=== PATIENT | male | born 1975 | race Native Hawaiian/Other Pacific Islander ===

== ENCOUNTER 2025-02-06 11:09 | Outpatient (AMB) | payer OTHER, SELFPAY ==
--- NOTE | 2025-02-06 11:17 | A.OFFVIS_ITS ---
Vital Signs 02/06/25 11:18 Height 5 ft 11 in Weight 278 lb BMI 38.8 Intake Visit Reasons: Pain in RT ankle and joints of Rt foot Intake Note: Noe is a 49 year old male who presents today as a new patient for an evaluation of his right ankle and foot pain. Patient states the pain has been going on for about 2 months and he has tried OTC pain medication and found no re lief. Pt was seen at urgent care about 1.5 months ago where he was provided with a post op shoe. Allergies barium iodide (BARIUM IODIDE) Allergy (Unknown, Verified 02/06/25 11:24) HIVES barium sulfate Allergy (Unknown, Verified 02/06/25 11:24) Hives HPI HPI Pain in RT ankle and joints of Rt foot: Details: The patient is a 49-year-old male with past medical history of diabetes mellitus type 2, tobacco use, presents for right foot pain and swelling. The foot pain b noni a couple of months ago after a foot sprain/injury. He then had a new foot injury 3 weeks ago and has had worsening pain and swelling since then. He is ambulating in a post-op shoe. The patient has a history of Diabetes Mellitus, with a recent HbA1c of 6.5%, down from 12.1%. Complains of burning/tingling to his feet bilaterally, worse when his sugar is higher. He also has been working on quitting smoking, currently smoking half a pack of cigarettes. He also complains of a vein problem to his right ankle, and painful toe nails and lesion to his right big toe. Medical History: - Diabetes Mellitus Social History: - Smoking: Patient smokes, advised to reduce smoking to improve healing. Review of Systems Const All systems reviewed & are unremarkable except as noted in HPI and below Physical Exam Vital Signs: BMI result Body Mass Index 38.8 Extrem Other: *Bilateral Lower Extremity Focused Diabetic Foot Exam Vascular: DP/PT 2/4, CFT<3s to digits, TG warm to cool, moderate right dorsal foot edema, pedal hair absent Derm: Skin: hyperkeratotic lesion right medial hallux, plantar sub-met-1 bilaterally Interdigital spaces: Clear, no maceration or fungal infection. Nails: Elongated, dystrophic, thickened, discolored toe-nails x10 Neuro: Protective sensation grossly intact to bilateral lower extremities. Msk: moderate tenderness on palpation of dorsal 2nd-5th tarsal-metatarsals right foot, (+) stress abduction test, negative piano oates test right foot metatarsals 2-5. Deformities: Moderate-high cavus foot deformity bilaterally, semi-rigid. Gait: Normal, no antalgic or steppage gait observed. Footwear Assessment: Shoes inspected; appropriate fit, no excessive wear, or foreign objects noted. Office Procedures AMB Debridement /Avulsion Details: Procedure: Callus debridement Location: Right hallux Anesthesia: N/A Description: The affected area was cleansed with an antiseptic solution. Using a sterile #15 blade, the hyperkeratotic tissue was radially debrided from the foot. All callused tissue was removed down to normal skin without causing bleeding or discomfort. The area was inspected for underlying ulceration or infection. Patient tolerated the procedure well. No complications noted. Tolerance: Patient tolerated procedure well, no immediate complications. [id number] of Callus (1) Procedure code (CPT) selection complete Assessment & Plan Assessment & Plan (1) Lisfranc's sprain: Code(s): S93.629A - Sprain of tarsometatarsal ligament of unspecified foot, initial encounter Category: Medical Qualifiers: Encounter type: initial encounter Laterality: right Qualified Code(s): S93.621A - Sprain of tarsometatarsal ligament of right foot, initial encounter Plan: * Differential diagnosis: lisfranc sprain, lisfranc fracture, charcot neuroarthropathy * Referred for right foot/ankle x-rays. * Dispensed CAM boot, to be worn when weight-bearing at all times. * Follow up in 2 weeks. (2) Right ankle sprain: Code(s): S93.401A - Sprain of unspecified ligament of right ankle, initial encounter Category: Medical Qualifiers: Encounter type: initial encounter Involved ligament of ankle: anterior talofibular ligament Qualified Code(s): S93.491A - Sprain of other ligament of right ankle, initial encounter Plan: * continue PWB in CAM boot (3) Callus of foot: Code(s): L84 - Corns and callosities Category: Medical Plan: * debrided right foot lesion with a #15 blade (4) Diabetes mellitus: Code(s): E11.9 - Type 2 diabetes mellitus without complications Category: Medical Qualifiers: Diabetes mellitus type: type 2 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: with local intermodal truck driver use Diabetes mellitus complication status: with neurologic complications Diabetes mellitus complication detail: with polyneuropathy Qualified Code(s): E11.42 - Type 2 diabetes mellitus with diabetic polyneuropathy; 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 Orders: Orders XR foot RT min 3V Today S93.401A - Sprain of unspecified ligament of right ankle, initial encounter, S93.629A - Sprain of tarsometatarsal ligament of unspecified foot, initial encounter XR ankle RT min 3V Today S93.401A - Sprain of unspecified ligament of right ankle, initial encounter, S93.629A - Sprain of tarsometatarsal ligament of unspecified foot, initial encounter Coding Level of Care Code New Pt Level 4 (22538) Diagnoses Sprain of ligament of tarsometatarsal joint of right foot, initial encounter S93.621A Encounter type: initial encounter Laterality: right Sprain of anterior talofibular ligament of right ankle, initial encounter S93.491A Encounter type: initial encounter Involved ligament of ankle: anterior talofibular ligament Callus of foot L84 Type 2 diabetes mellitus with diabetic polyneuropathy, with long-term current use of insulin E11.42; Z79.4 Diabetes mellitus type: type 2 Diabetes mellitus fpc insulin use: with fpc use Diabetes mellitus complication status: with neurologic complications Diabetes mellitus complication detail: with polyneuropathy Smokes < 1 pack of cigarettes per day F17.210 Time Spent (min) 35
[2025-02-06 11:18] VITALS: BMI 38.8
--- OUTSIDE RECORDS SUMMARY | 2025-02-06 13:31 | XMS_ITS | Clinical Summary ---
Author Organization [facility] Address [address] [place] [address] Phone Care Team Providers Care Gutter Mouth Cutter Name Role Phone Cris Solis MD Primary Care Provider Allergies Active Allergy Reactions Criticality Noted Date Comments Barium Iodide Anaphylaxis High 05/21/2024 Medications gabapentin (NEURONTIN) 300 mg capsule Take 1 capsule (300 mg total) by mouth 3 (three) times a day for 10 days. 30 each 05/22/2024 Active levoFLOXacin (LEVAQUIN) 500 mg tablet Take 1 tablet (500 mg total) by mouth 1 (one) time each day for 14 days. 14 each 01/13/2025 01/28/20 25 Active Problems No known active problems Encounters Date Type Department Care Team Description 01/16/2025 6:23 AM EDT - 01/16/2025 7:43 AM EDT Emergency [facility] [address] [place] [phone] Chest pain, unspecified type (Primary Dx) Discharge Disposition: Home or Self Care 01/13/2025 3:24 AM EDT - 01/13/2025 8:29 AM EDT Emergency [facility] [address] [place] [address] Preston Nagy MD Muhoozi, Bannet, MD Groin swelling (Primary Dx); Orchitis Discharge Disposition: Home or Self Care 12/14/2024 12:57 PM EDT - 12/14/2024 1:56 PM EDT Emergency [facility] [address] [place] [address] Sprain of right foot, initial encounter (Primary Dx) Discharge Disposition: Home or Self Care from Last 3 Months Medical History Medical History Date Comments Diabetes (CMS/HCC V24, CMS/HCC V28) High cholesterol Social History Tobacco Use Types Packs/Day Years Used Date Smoking Tobacco: Every Day Cigarettes Smokeless Tobacco: Never Tobacco Cessation:Ready to Q uit: No; Counseling Given: Not Answered Alcohol Use Standard Drinks/Week Comments Never 0 (1 standard drink = 0.6 oz pur e alcohol) Sex and Gender Information Value Date Recorded Sex Assigned at Male 12/14/2024 2:05 PM EDT Legal Sex Male 3:16 AM EST Gender Identity Male 12/14/2024 2:05 PM EDT Sexual Orientation Straight 12/14/2024 2: 05 PM EDT Obstetrics History Last Filed Vital Signs Vital Sign Reading Time Taken Comments Blood Pressure 145/64 01/16/2025 6:17 AM EDT Pulse 87 01/16/2025 6:17 AM EDT Temperature 36.9 C (98.5 F) 01/13/2025 8:29 AM EDT Respiratory Rate 18 01/16/2025 6:17 AM EDT Oxygen Saturation 99% 01/16/2025 6:17 AM EDT Inhaled Oxygen Concentration - - Weight 136 kg (300 lb) 01/16/2025 6:17 AM EDT Height 177.8 cm (5' 10 ) 01/16/2025 6:17 AM EDT Body Mass Index 43.05 01/16/2025 6:17 AM EDT Plan of Treatment Health Maintenance Due Date Last Done Comments Diabetes: Annual Foot Exam 1984 Diabetes: Annual Retina Eye Exam 1984 Hepatitis A Vaccines (1 of 2 - Risk 2-dose series) 1993 Hepatitis B Vaccines (1 of 3 - 19+ 3-dose series) 1993 Cholesterol Screening (Lipid Panel) 03/19/2022 HIV Screening 03/19/2022 Hepatitis C Screening 03/19/2022 Social Influencers of Health Screening 03/19/2022 Depression Screening 04/16/2024 Diabetes: Annual Urine Albumin-Creatinine Ratio (uACR) 05/22/2024 Diabetes: Blood Sugar Contro l Test (HGBA1C) 05/22/2024 RSV Immunization Adult Patients (1 - Risk 50-74 years 1-dose series) 2024 Zoster Vaccines (1 of 2) 2024 COVID-19 Vaccine (2 - 2024-2 6 season) 2024 05/27/2022 Influenza Vaccine (#1) 2024 Diabetes: Annual GFR (Glomerular Filtration Rate) 05/22/2025 05/22/2024 Colorectal Cancer Screening: FIT-DNA (Cologuard) 12/10/2027 12/09/2024, 12/09/2024 DTaP,Tdap,and Td Vaccines (2 - Td or Tdap) 12/02/2034 12/02/2024 Pneumococcal Vaccine: 50+ Years Completed 12/02/2024 HIB Vaccines Aged Out No longer eligi ble based on patient's age to complete this topic HPV Vaccines Aged Out No longer eligi ble based on patient's age to complete this topic IPV Vaccines Aged Out No longer eligi ble based on patient's age to complete this topic MMR Vaccines Aged Out No longer eligi ble based on patient's age to complete this topic Meningococcal ACWY Vaccine Aged Out N o longer eligible based on patient's age to complete this topic Meningococcal B Vaccine Aged Out No l onger eligible based on patient's age to complete this topic RSV Immunization Patients Under 20 months Aged Out No longer eligible b ased on patient's age to complete this topic Varicella Vaccines Aged Out No longer eligible based on patient's age to complete this topic Procedures Procedure Name Priority Date/Time Associated Diagnosis Comments ECG ANNOTATED 01/17/2025 ECG 12-LEAD Routine 01/16/2025 6:16 AM EDT TAYLOR URINE CULTURE TUBE STAT 01/13/2025 6:13 AM EDT URINALYSIS WITH REFLEX MICROSCOPIC AND CULTURE STAT 01/13/2025 6:13 AM EDT URINALYSIS WITH REFLEX MICROSCOPIC AND CULTURE STAT 01/13/2025 6:13 AM EDT CULTURE URINE STAT 01/13/2025 6:13 AM EDT CHLAMYDIA TRACHOMATIS AND NEISSERIA GONORRHOEAE PCR STAT 01/13/2025 6:13 AM EDT US SCROTUM AND CONTENTS STAT 01/13/2025 4:38 AM EDT POCT GLUCOSE BLOOD Routine 12/14/2024 1: 25 PM EDT Sprain of right foot, initial encounter XR FOOT 3+ VIEWS RIGHT STAT 12:33 PM EDT Sprain of right foot, initial encounter COMPREHENSIVE METABOLIC PANEL STAT 05/22/2024 3:44 AM EST from Last 3 Months or Most Recently Relevant to Health Maintenance Results * ECG-Annotated (01/17/2025) Provider Onbase MD ECG ORDERABLES Final Result * ECG 12 lead (01/16/2025 6:16 AM EDT) Ventricular Rate ECG 95 BPM GEMUSE Atrial Rate 95 BPM GEMUSE P-R Interval 176 ms GEMUSE QRS Duration 136 ms GEMUSE Q-T Interval 418 ms GEMUSE QTc 525 ms GEMUSE P Wave Blakeslee 46 degrees GEMUSE R Blakeslee -10 degrees GEMUSE T Blakeslee 20 degrees GEMUSE ECG Interpretation Normal sinus rhythm Right bundle branch block Abnormal ECG When compared with ECG of 03-MAR-2021 13:07, Right bundle branch block is now Present Confirmed by TL CARBAJAL ([id number]) on 01/17/2025 10:59:19 AM GEMUSE 01/16/2025 6:16 AM EDT 01/17/2025 10:59 AM EDT Ned HOLLEY ECG ORDERABLES Final Resul t GEMUSE * (ABNORMAL) Urinalysis with reflex microscopic and culture (01/13/2025 6:13 AM ED) Specific [place] Urine 1.027 1.003 - 1.030 LAB URINALYSIS - AUTOMATED METHOD 01/13/2025 7:13 AM [facility] pH, Urine 6.0 5.0 - 8.0 pH LAB URINALYSIS - AUTOMATED METHOD 01/13/2025 7:13 AM [facility] Leukocytes, Urine Small(A) Negative LAB URINALYSIS - AUTOMATED METHOD 01/13/2025 7:13 AM [facility] Nitrite, Urine Negative Negative LAB URINALYSIS - AUTOMATED METHOD 01/13/2025 7:13 AM [facility] Protein, Urine 30(A) <=Trace mg/dL LAB URINALYSIS - AUTOMATED METHOD 01/13/2025 7:13 AM [facility] Glucose, Urine Negative Negative mg/dL LAB URINALYSIS - AUTOMATED METHOD 01/13/2025 7:13 AM [facility] Ketones, Urine Trace(A) Negative mg/dL LAB URINALYSIS - AUTOMATED METHOD 01/13/2025 7:13 AM [facility] Urobilinogen, Urine 1.0 0.2 - 1.0 mg/dL LAB URINALYSIS - AUTOMATED METHOD 01/13/2025 7:13 AM [facility] Bilirubin, Urine Negative Negative LAB URINALYSIS - AUTOMATED METHOD 01/13/2025 7:13 AM [facility] Blood, Urine Negative Negative LAB URINALYSIS - AUTOMATED METHOD 01/13/2025 7:13 AM [facility] RBC, Urine 0.2 0 - 4 /HPF LAB URINALYSIS - AUTOMATED METHOD 01/13/2025 7:13 AM [facility] WBC, Urine 4.1(H) 0 - 4 /HPF LAB URINALYSIS - AUTOMATED METHOD 01/13/2025 7:13 AM EDT [facility] Squamous Epithelial, Urine 71(H) 0 - 60 /LPF LAB URINALYSIS - AUTOMATED METHOD 01/13/2025 7:13 AM EDT [facility] Bacteria, Urine Few(A) Negative /HPF LAB URINALYSIS - AUTOMATED METHOD 01/13/2025 7:13 AM EDT [facility] Hyaline Casts, Urine 4.0(H) 0 - 3 /LPF LAB URINALYSIS - AUTOMATED METHOD 01/13/2025 7:13 AM EDT [facility] Urine Urine specimen obtained by clean catch procedure / Unknown Non-blood Collection / Unknown 01/13/2025 6:13 AM EDT 01/13/2025 6:51 AM EDT Preston Nagy MD LAB URINE ORDERABLES Final R esult Performing Organization Address City/[facility]/ZIP Co de Phone Number [facility] [address] [place] [address], [place] [phone] * Taylor urine culture tube (01/13/2025 6:13 AM EDT) Pathologist [facility] Extra Tube Hold for add-ons. 01/13/2025 8:02 AM EDT [facility] Comment:Auto resulted. Urine Urine specimen obtained by clean catch procedure / Unknown Non-blood Collection / Unknown 01/13/2025 6:13 AM EDT 01/13/2025 6:51 AM EDT Preston Nagy MD LAB URINE ORDERABLES Final R esult Performing Organization Address City/[facility]/ZIP Co de Phone Number [facility] [address] [place] [address], [place] [phone] * Chlamydia trachomatis and Neisseria gonorrhoeae molecular study (01/13/2025 6:13 AM EDT) Neisseria gonorrhoeae PCR Negative Negative LAB MOLECULAR DIAGNOSTICS METHOD 01/13/2025 10:32 AM EDT [facility] Chlamydia trachomatis PCR Negative Negative LAB MOLECULAR DIAGNOSTICS METHOD 01/13/2025 10:32 AM EDT [facility] Urine First stream urine specimen / Unknown Non-blood Collection / Unknown 01/13/2025 6:13 AM EDT 01/13/2025 6:51 AM EDT Sofya HOLLEY LAB MICROBIOLOGY - GENER AL ORDERABLES Final Result [facility] [address] [place] [address], [place] [phone] * Culture urine (01/13/2025 6:13 AM EDT) Culture, Urine No growth 01/14/2025 7:41 AM EDT [facility] Urine Urine specimen obtained by clean catch procedure / Unknown Non-blood Collection / Unknown 01/13/2025 6:13 AM EDT 01/13/2025 7:13 AM EDT Preston Nagy MD LAB MICROBIOLOGY - GENERAL O RDERABLES Final Result Performing Organization Address City/[facility]/ZIP Co de Phone Number [facility] [address] [place] [address], [place] [phone] * US Scrotum and Contents (01/13/2025 4:38 AM EDT) Anatomical Region Laterality Modality Body Ultrasound 01/13/2025 7:41 AM EDT Impressions 01/13/2025 7:41 AM EDT Mild orchitis suggested bilaterally. No abscess or torsion. This document has been electronically signed by: Darron Mcclendon MD on 01/13/2025 07:41:07 Narrative 01/13/2025 7:41 AM EDT INDICATION: right testicular pain US Scrotum with Doppler Comparison: None provided Findings: Right testicle: Mildly heterogeneous echotexture, without mass lesion, measuring 4.6 x 2.2 x 3.5 cm. Left testicle: Mildly heterogeneous echotexture, without mass lesion, measuring 3.9 x 2.5 x 3.0 cm. Mildly increased vascularity to both testicles. Normal epididymides. No hydroceles or varicoceles. Procedure Note Darron Mcclendon MD - 01/13/2025 INDICATION: right testicular pain US Scrotum with Doppler Comparison: None provided Findings: Right testicle: Mildly heterogeneous echotexture, without mass lesion, measuring 4.6 x 2.2 x 3.5 cm. Left testicle: Mildly heterogeneous echotexture, without mass lesion, measuring 3.9 x 2.5 x 3.0 cm. Mildly increased vascularity to both testicles. Normal epididymides. No hydroceles or varicoceles. IMPRESSION: Mild orchitis suggested bilaterally. No abscess or torsion. This document has been electronically signed by: Darron Mcclendon MD on 01/13/2025 07:41:07 Sofya HOLLEY IMG US PROCEDURES Final Result * (ABNORMAL) POCT Glucose, blood (12/14/2024 1:25 PM EDT) Pathologist [facility] Glucose POCT 147(H) 70 - 100 mg/dL 12/14/2024 1:26 PM EDT [facility] Blood Capillary blood specimen / Unknown 12/14/2024 1:25 PM EDT 12/14/2024 1:27 PM EDT Generic Provider Poct LAB POINT OF CARE TEST DOCKED DEVICE UNSOLICITED RESULTS Final Result [facility] [address] [place] [address], * XR Foot 3+ Views Right (12/14/2024 12:33 PM EDT) Anatomical Region Laterality Modality Lower Extremities, Foot Right Radiogra phic Imaging 12/14/2024 12:3 7 PM EDT Impressions 12/14/2024 12:40 PM EDT No definite acute fracture or subluxation. Soft tissue swelling. -------- FINAL REPORT -------- Dictated By: Phillip Martínez Dictated Date: 12/14/2024 12:37 ET Assigned Physician: Phillip Martínez Reviewed and Electronically Signed By: Phillip Martínez Signed Date: 12/14/2024 12:40 ET Workstation ID: [id number] Transcribed By: Self Edit Transcribed Date: 12/14/2024 12:37 ET Narrative 12/14/2024 12:40 PM EDT EXAMINATION: RIGHT FOOT CLINICAL INFORMATION: Pain. Injury, tripped COMPARISON: None. TECHNIQUE: 3 views right foot FINDINGS: No definite acute fracture or subluxation. There is soft tissue swelling around the great toe and first MTP joint region. There is a faint smooth calcific or ossific density between the basis of the first and second metatarsals which does not appear acute. There is generalized soft tissue swelling of the midfoot. Procedure Note Phillip Martínez MD - 12/14/2024 EXAMINATION: RIGHT FOOT CLINICAL INFORMATION: Pain. Injury, tripped COMPARISON: None. TECHNIQUE: 3 views right foot FINDINGS: No definite acute fracture or subluxation. There is soft tissue swellingaround the great toe and first MTP joint region. There is a faint smooth calcific or ossific density between the basis ofthe first and second metatarsals which does not appear acute. There is generalized soft tissue swelling of the midfoot. IMPRESSION: No definite acute fracture or subluxation. Soft tissue swelling. -------- FINAL REPORT -------- Dictated By: Phillip Martínez Dictated Date: 12/14/2024 12:37 ET Assigned Physician: Phillip Martínez Reviewed and Electronically Signed By: Phillip Martínez Signed Date: 12/14/2024 12:40 ET Workstation ID: [id number] Transcribed By: Self Edit Transcribed Date: 12/14/2024 12:37 ET Araceli Rangel DO IMG XR PROCEDURES Final Resul t * (ABNORMAL) Comprehensive metabolic panel (05/22/2024 3:44 AM EST) Sodium 134 133 - 145 mmol/L LAB CHEMISTRY METHOD 05/22/2024 4:36 AM [facility] Potassium 4.3 3.5 - 5.5 mmol/L LAB CHEMISTRY METHOD 05/22/2024 4:36 AM [facility] Chloride 100 96 - 110 mmol/L LAB CHEMISTRY METHOD 05/22/2024 4:36 AM [facility] CO2 29 21 - 32 mmol/L LAB CHEMISTRY METHOD 05/22/2024 4:36 AM [facility] Anion Gap 5 3 - 11 LAB CHEMISTRY METHOD 05/22/2024 4:36 AM [facility] Glucose 98 70 - 100 mg/dL LAB CHEMISTRY METHOD 05/22/2024 4:36 AM [facility] BUN 18 5 - 25 mg/dL LAB CHEMISTRY METHOD 05/22/2024 4:36 AM [facility] Creatinine 1.03 0.70 - 1.30 mg/dL LAB CHEMISTRY METHOD 05/22/2024 4:36 AM [facility] eGFR 89 >=60 mL/min/1. 73m2 LAB CHEMISTRY METHOD 05/22/2024 4:36 AM [facility] Comment:Calculation based on the Chronic Kidney Disease Epidemiology Collaboration (CKD-EPI) equation refit without adjustment for race. BUN/Creatinine Ratio 17.5 LAB CHEMISTRY METHOD 05/22/2024 4:36 AM [facility] Calcium 9.4 8.5 - 10.5 mg/dL LAB CHEMISTRY METHOD 05/22/2024 4:36 AM [facility] AST (SGOT) 26 10 - 42 unit/L LAB CHEMISTRY METHOD 05/22/2024 4:36 AM [facility] ALT (SGPT) 34 10 - 60 unit/L LAB CHEMISTRY METHOD 05/22/2024 4:36 AM EST [facility] Alkaline Phosphatase 133(H) 42 - 121 unit/L LAB CHEMISTRY METHOD 05/22/2024 4:36 AM EST [facility] Total Protein 8.3(H) 6.0 - 8.0 g/dL LAB CHEMISTRY METHOD 05/22/2024 4:36 AM EST [facility] Albumin 3.9 3.2 - 5.0 g/dL LAB CHEMISTRY METHOD 05/22/2024 4:36 AM EST [facility] Total Bilirubin 0.5 0.0 - 1.4 mg/dL LAB CHEMISTRY METHOD 05/22/2024 4:36 AM [facility] Blood Venous blood specimen / Unknown Venipuncture / Unknown 05/22/2024 3:44 AM EST 05/22/2024 4:12 AM EST us Alec Maloney DO LAB BLOOD ORDERABLES Final Resu lt [facility] [address] [place] [address], from Last 3 Months or Most Recently Relevant to Health Maintenance Insurance [facility] MEDICAID ADVANTAGE Care Teams Gutter Mouth Cutter Relationship Specialty Start Date End Date Cris Solis MD [address] [facility] [place] [address] PCP - General Internal Medicine 03/03/21
== END 2025-02-06 11:48 | disposition home or self-care (01) ==
LOC: HO.HPODS 11:10
PROVIDERS: PCP Internal Medicine; Visit Provider Student in an Organized Health Care Education/Training Program
DX: S93.621A Sprain of tarsometatarsal ligament of right foot, initial encounter (principal); S93.491A Sprain of other ligament of right ankle, initial encounter; L84 Corns and callosities; E11.42 Type 2 diabetes mellitus with diabetic polyneuropathy; Z79.4 Long term (current) use of insulin; F17.210 Nicotine dependence, cigarettes, uncomplicated
CPT/HCPCS: 99204

== ENCOUNTER → 2025-02-06 11:09 | Outpatient (BNVA) | payer OTHER, SELFPAY | PROVIDERS: PCP Internal Medicine; Visit Provider Student in an Organized Health Care Education/Training Program | DX: S93.621A Sprain of tarsometatarsal ligament of right foot, initial encounter (principal); S93.491A Sprain of other ligament of right ankle, initial encounter; X58.XXXA Exposure to other specified factors, initial encounter; Y93.9 Activity, unspecified; Y92.9 Unspecified place or not applicable; Y99.9 Unspecified external cause status; L84 Corns and callosities; E11.42 Type 2 diabetes mellitus with diabetic polyneuropathy; F17.210 Nicotine dependence, cigarettes, uncomplicated; Z79.4 Long term (current) use of insulin; Z71.6 Tobacco abuse counseling | CPT/HCPCS: 11055; 99202 ==

== ENCOUNTER 2025-04-14 10:34 | Emergency (ER) | payer OTHER, SELFPAY ==
--- NOTE | ~2025-04-14 | XR_ITS ---
EXAMINATION: XR FOOT, RIGHT CLINICAL INFORMATION: toe diabetic wound COMPARISON: None available. TECHNIQUE: AP, lateral, and oblique views of the right foot. FINDINGS: There may be an old healed fracture of the proximal phalanx of the fifth toe. No acute fracture or dislocation. Mild degenerative changes at the first IP and MTP joints with small osteophytes. Mild degenerative changes at the metatarsal tarsal joints. Small calcaneal spurs. No x-ray evidence of osteomyelitis. Soft tissue swelling and ulceration of the medial aspect of the distal great toe. No soft tissue foreign body. XR/XR foot RT min 3V IMPRESSION: No acute fracture or x-ray evidence of osteomyelitis. Soft tissue swelling of the great toe. Mild degenerative changes of the great toe and at the MTT joints. Electronically signed by: Mitra Payne MD 04/14/2025 12:19 PM [place]
[2025-04-14 11:29] VITALS: BP 133/61; PULSE 75; RESP 16; TEMP 36.7; O2SAT 95; BMI 37.5
--- NOTE | 2025-04-14 11:29 | ED.GENADULT ---
HPI - General Adult General Chief complaint: Skin/Abscess/Foreign Body Stated complaint: infection, pt is diabetic Time Seen by Provider: 04/14/25 20:20 Source: patient Limitations: no limitations History of Present Illness ED Provider: Bren Sharp PA-C HPI narrative: 49-year-old male with a history of diabetes, peripheral neuropathy, chronic left foot diabetic ulcer/callus, prior osteomyelitis, hypertension, tobacco abuse, morbid obesity who presents with a concern for left great toe active infection. Unclear duration of symptoms, patient states he completed a course of doxycycline 3 weeks ago. Denies fever denies drainage from the site. He is followed by Podiatry, he does not see wound care. Related Data Home Medications ?Medication ?Instructions ?Recorded ?Confirmed acetaminophen 650 mg 650 mg PO TID 02/06/25 tablet,extended release albuterol sulfate 90 mcg/actuation 2 puff inhalation Q4H PRN wheezing 02/06/25 aerosol inhaler (Ventolin HFA) alcohol swabs (Alcohol Pads) pad topical DAILY 02/06/25 blood sugar diagnostic (FreeStyle #10 ea 02/06/25 Lite Strips) blood-glucose sensor (FreeStyle #1 ea 02/06/25 Ed 3 Plus Sensor device) blood-glucose,gizzard puller,cont #1 ea 02/06/25 (FreeStyle Ed 3 [place]) bupropion HCl 150 mg tablet,12 hr mg PO 02/06/25 sustained-release ciprofloxacin HCl 500 mg tablet 500 mg PO BID 02/06/25 insulin glargine 100 unit/mL (3 20 unit subcut DAILY 02/06/25 mL) subcutaneous pen (Lantus Solostar U-100 Insulin) lancets 28 gauge (FreeStyle #100 ea 02/06/25 Lancets) meloxicam 7.5 mg tablet 7.5 mg PO DAILY 02/06/25 metformin 1,000 mg tablet 1,000 mg PO BID 02/06/25 metoprolol succinate 25 mg 25 mg PO DAILY 02/06/25 tablet,extended release 24 hr pregabalin 150 mg capsule 150 mg PO TID 02/06/25 semaglutide 2 mg/dose (8 mg/3 mL) mg subcut 02/06/25 subcutaneous pen injector (Ozempic) sertraline 100 mg tablet 200 mg PO 02/06/25 Previous Rx's ?Medication ?Instructions ?Recorded doxycycline hyclate 100 mg capsule 100 mg PO BID #13 caps 04/14/25 Allergies Allergy/AdvReac Type Severity Reaction Status Date / Time barium iodide (BARIUM IODIDE) Allergy Unknown HIVES Verified 04/14/25 11:31 barium sulfate Allergy Unknown Hives Verified 04/14/25 11:31 Review of Systems Review of Systems: Yes all other systems are reviewed and are negative Constitutional: Constitutional: Denies fatigue and Denies fever(s) Cardiovascular: Cardiovascular: Denies chest pain and Denies dyspnea Respiratory: Respiratory: Denies dyspnea Musculoskeletal: Musculoskeletal: Denies arthralgias and Denies joint swelling Integumentary/Breasts: Skin/Breast: Denies erythema and Reports wounds Endocrine: Endocrine: Denies fatigue PMFSH Past Medical History Attestation statement: The following information was validated with the patient. Social History Social History Advance Directives: No Advance Directives Information Provided: No Physical Exam ED Vital Signs: Vital Signs - 24 hr 04/14/25 11:29 Temperature 98.0 F Pulse Rate 75 Respiratory Rate 16 Blood Pressure 133/61 Pulse Oximetry 95 Oxygen Delivery Method Room Air BMI result Body Mass Index 37.5 Const Other: Alert Orientation/consciousness: patient oriented x3 Resp Effort & Inspection: normal respiratory effort Cardio Other: Normal peripheral perfusion Skin Other: Warm dry no rash Neuro General: patient oriented x3, gait normal, no focal motor deficits and CN's II-XI intact bilaterally Extrem Other: The foot is callus as you can see, there was no overt warmth, erythema there was no purulence from the site of the callus, does not appear actively infected, maybe developing early early cellulitis of some of the toes Psych Other: Cooperative Course Course Course Narrative: This is a Rapid Medical Exam performed in triage by Kinza Funes PA-C. Full HPI, ROS and PE to be performed by primary ED provider. 49-year-old male with a past medical history diabetes, cholelithiasis, presenting to the ED c/o suspected infection to right foot. States had callus debrided by podiatry however feels they went to deep. Was on oral antibiotics from urgent Care without relief. PE: + Ceron's noted to right great and 2nd toe. Small black areas noted. Mildly tender to palpation. Neurovascularly intact. Plan: Labs, x-ray Medical Decision Making Medical Decision Making MDM Narrative: 49-year-old male with a history of diabetes, peripheral neuropathy, chronic left foot diabetic ulcer/callus, prior osteomyelitis, hypertension, tobacco abuse, morbid obesity who presents with a concern for left great toe active infection. Unclear duration of symptoms, patient states he completed a course of doxycycline 3 weeks ago. Denies fever denies drainage from the site. He is followed by Podiatry, he does not see wound care. Problem: Tobacco abuse, diabetes History: Per patient I have considered the following differential diagnoses: Osteomyelitis, cellulitis, purulent cellulitis, gangrene Plan: Screening labs and x-ray obtained from triage, there was no evidence of osteomyelitis, question of maybe early cellulitis developing of the 2nd toe, the wound/callus is chronic, does not appear actively infected. To err on the side of caution we will place on a course of doxycycline. His labs were reassuring, no leukocytosis, inflammatory markers elevated to some degree. No indication for advanced imaging or IV antibiotic therapy . We will send the patient with a contact for wound care, he could benefit from potential debridement of the callus I have independently reviewed the following tests: Labs: No leukocytosis, no left shift, not anemic, ESR 70, no electrolyte abnormality, C-reactive 2.58 X-ray left foot: XR/XR foot RT min 3V IMPRESSION: No acute fracture or x-ray evidence of osteomyelitis. Soft tissue swelling of the great toe. Mild degenerative changes of the great toe and at the MTT joints. Differential Diagnosis Differential Diagnoses: The differential diagnosis associated with the presentation includes See [facility] Admission/Observation Consideration of admission/observation: Escalation of care including admission/observation considered Not applicable Lab Data [facility] Lab Attestation statement: I reviewed the patient's lab results. 04/14/25 12:23 04/14/25 12:23 Labs: Lab Results 04/14/25 Range/Units 12:23 WBC 7.7 (4.8-10.8) X10*3/uL RBC 4.35 L (4.60-5.80) X10*6/uL Hgb 12.2 L (14.0-18.0) g/dl Hct 36.5 L (42.0-52.0) % MCV 83.9 (80.0-98.0) fL MCH 28.0 (27.0-33.0) pg MCHC 33.4 (31.0-36.0) g/dl RDW 14.6 (11.0-16.0) % Plt Count 273 (160-400) X10*3/uL MPV 8.8 L (9.4-12.4) fL Immature Gran % (Auto) 0.3 (0.0-0.4) % Neut % (Auto) 62.4 (45-73) % Lymph % (Auto) 24.2 (20-40) % [place] % (Auto) 5.9 (2-11) % Eos % (Auto) 6.8 H (0-4) % Baso % (Auto) 0.4 (0-2) % Lymph # (Auto) 1.9 (1.2-4.9) X10*3/uL [place] # (Auto) 0.5 (0.1-1.2) X10*3/uL Eos # (Auto) 0.5 H (0.0-0.4) X10*3/uL Baso # (Auto) 0.0 (0.0-0.2) X10*3/uL Abs Immat Gran (auto) 0.02 (0.00-0.03) X10*3/uL Absolute Neuts (auto) 4.8 (2.0-8.3) x10*3/uL Absolute Nucleated RBC 0.000 (0.0-0.012) X10*3/uL Nucleated RBC % (auto) 0.0 (0.0-0.2) /100WBC ESR 74 H (1-20) MM/HR Sodium 138 (135-145) mmol/L Potassium 4.5 (3.3-5.1) mmol/L Chloride 106 (96-108) mmol/L Carbon Dioxide 25 (22-29) mmol/L Anion Gap 12 (12-20) BUN 17 H (9-16) mg/dL Creatinine 0.87 (0.5-1.4) mg/dL Estim Creat Clear Calc 135.0 Estimated GFR > 60 Random Glucose 106 (60-115) mg/dL Calcium 9.3 (8.4-10.2) mg/dL Total Bilirubin 0.3 (0.0-1.0) mg/dL Direct Bilirubin 0.1 (0.0-0.5) mg/dL AST 25 (5-37) U/L ALT 38 (0-40) U/L Alkaline Phosphatase 170 H (39-117) U/L C-Reactive Protein 2.58 H (< or = 0.50) mg/dL Total Protein 7.8 (6.5-8.0) g/dL Albumin 4.3 (3.5-5.0) g/dL Radiology Impression Discussion of test interpretation with radiology: I have reviewed the radiologist's reading. Discharge Plan Discharge Clinical Impression: Cellulitis of foot, left Patient Disposition: Home, Self-Care Instructions: Cellulitis (ED) Additional Instructions: You do not have an acute infection of the left foot, there was no communication with the bone. It is questioned that you may be developing cellulitis of the 2nd toe, to be cautious, we are placing you on doxycycline. It is reassuring that your labs were overall normal. Take the doxycycline as directed. I am providing you with a contact for wound care, call after the holiday to schedule an appointment. They can track and follow your progress with your chronic callus. Prescriptions: New doxycycline hyclate 100 mg capsule 100 mg PO BID Qty: 13 0RF No Action bupropion HCl 150 mg tablet sustained-release 12 hr PO sertraline 100 mg tablet 200 mg PO (DME) FreeStyle Lite Strips Strip See Rx Instructions .ROUTE QAM Qty: 10 Rx Instructions: As directed ciprofloxacin HCl 500 mg tablet 500 mg PO BID acetaminophen 650 mg tablet extended release 650 mg PO TID meloxicam 7.5 mg tablet 7.5 mg PO DAILY metformin 1,000 mg tablet 1,000 mg PO BID alcohol swabs [Alcohol Pads] Pads, Medicated topical DAILY metoprolol succinate 25 mg tablet extended release 24 hr 25 mg PO DAILY albuterol sulfate [Ventolin HFA] 90 mcg/actuation HFA aerosol inhaler 2 puff inhalation Q4H PRN (Reason: wheezing) pregabalin 150 mg capsule 150 mg PO TID insulin glargine [Lantus Solostar U-100 Insulin] 100 unit/mL (3 mL) insulin pen 20 unit subcut DAILY (DME) FreeStyle Ed 3 Plus Sensor Device See Rx Instructions .ROUTE .MEDSUPPLY Qty: 1 Rx Instructions: As directed (DME) FreeStyle Ed 3 [place] Misc See Rx Instructions .ROUTE TID Qty: 1 Rx Instructions: As directed (DME) lancets [FreeStyle Lancets] 28 gauge misc See Rx Instructions .ROUTE DAILY Qty: 100 Rx Instructions: As directed Ozempic 2 mg/dose (8 mg/3 mL) pen injector subcut Referrals: [facility] [place]] Referral Note: left great toe diabetic foot chronic callous Print Language: Tuvaluan
[2025-04-14 12:30] LABS: MANUAL DIFF FLAG NO
[2025-04-14 12:34] LABS: Hematocrit 36.5 % (42.0-52.0); Hemoglobin 12.2 g/dl (14.0-18.0); Imm Gran Abs Auto 0.02 X10*3/uL (0.00-0.03); Imm Gran Pct Auto 0.3 % (0.0-0.4); Lymphocytes Absolute Auto 1.9 X10*3/uL (1.2-4.9); Mean Corpuscular HGB Conc 33.4 g/dl (31.0-36.0); Mean Corpuscular Hemoglobin 28.0 pg (27.0-33.0); Mean Corpuscular Volume 83.9 fL (80.0-98.0); NRBC Abs Auto 0.000 X10*3/uL (0.0-0.012); NRBC Pct Auto 0.0 /100WBC (0.0-0.2); Platelet Count 273 X10*3/uL (160-400); Red Blood Count 4.35 X10*6/uL (4.60-5.80); White Blood Count 7.7 X10*3/uL (4.8-10.8)
[2025-04-14 12:47] LABS: Alanine Aminotransferase 38 U/L (0-40); Albumin Level 4.3 g/dL (3.5-5.0); Alkaline Phosphatase 170 U/L (39-117); Anion Gap 12 (12-20); Aspartate Amino Transferase 25 U/L (5-37); Blood Urea Nitrogen 17 mg/dL (9-16); Calcium 9.3 mg/dL (8.4-10.2); Carbon Dioxide 25 mmol/L (22-29); Chloride 106 mmol/L (96-108); Creatinine Clr Calc Pharmacy 135.0; Estimated Glomerular Filt Rate > 60; Potassium 4.5 mmol/L (3.3-5.1); Sodium 138 mmol/L (135-145); Total Protein 7.8 g/dL (6.5-8.0)
--- OUTSIDE RECORDS SUMMARY | 2025-04-14 20:40 | XMS_ITS | Clinical Summary ---
Author Organization [facility] Address [address] [place] [address] Phone Care Team Providers Care Leasing Assistant Name Role Phone Cris Solis MD Primary Care Provider [phone] Allergies Active Allergy Reactions Criticality Noted Date Comments Barium Iodide Anaphylaxis High 05/21/2024 Medications gabapentin (NEURONTIN) 300 mg capsule Take 1 capsule (300 mg total) by mouth 3 (three) times a day for 10 days. 30 each 05/22/2024 Active Active Problems No known active problems Encounters Date Type Department Care Team Description 01/16/2025 6:23 AM EDT - 01/16/2025 7:43 AM EDT [facility] Emergency [address] [place] [address] Chest pain, unspecified type (Primary Dx) Discharge Disposition: Home or Self Care 01/13/2025 3:24 AM EDT - 01/13/2025 8:29 AM EDT [facility] Emergency [address] [place] [address] Preston Nagy MD Muhoozi, Bannet, MD Groin swelling (Primary Dx); Orchitis Discharge Disposition: Home or Self Care from [...] Orientation Straight 12/14/2024 2: 05 PM EDT Last Filed Vital Signs Vital Sign Reading [...] AND CONTENTS STAT 01/13/2025 4:38 AM EDT COMPREHENSIVE METABOLIC PANEL STAT 05/22/2024 3:44 AM [...] GEMUSE QTc 525 ms GEMUSE P Wave [place] 46 degrees GEMUSE R [place] -10 degrees GEMUSE T [place] 20 degrees GEMUSE ECG Interpretation Normal sinus [...] reflex microscopic and culture (01/13/2025 6:13 AM EDT) Pathologist [facility] Specific [place] Urine 1.027 1.003 - 1.030 LAB URINALYSIS - AUTOMATED METHOD 01/13/2025 7:13 AM EDT [facility] pH, Urine 6.0 5.0 - 8.0 pH LAB URINALYSIS - AUTOMATED METHOD 01/13/2025 7:13 AM EDT [facility] Leukocytes, Urine Small(A) Negative LAB URINALYSIS - AUTOMATED METHOD 01/13/2025 7:13 AM EDT [facility] Nitrite, Urine Negative Negative LAB URINALYSIS - AUTOMATED METHOD 01/13/2025 7:13 AM EDT [facility] Protein, Urine 30(A) <=Trace mg/dL LAB URINALYSIS - AUTOMATED METHOD 01/13/2025 7:13 AM [facility] Glucose, Urine Negative Negative mg/dL LAB URINALYSIS - AUTOMATED METHOD 01/13/2025 7:13 AM [facility] Ketones, Urine Trace(A) Negative mg/dL LAB URINALYSIS - AUTOMATED METHOD 01/13/2025 7:13 AM [facility] Urobilinogen, Urine 1.0 0.2 - 1.0 mg/dL LAB URINALYSIS - AUTOMATED METHOD 01/13/2025 7:13 AM [facility] Bilirubin, Urine Negative Negative LAB URINALYSIS - AUTOMATED METHOD 01/13/2025 7:13 AM [facility] Blood, Urine Negative Negative LAB URINALYSIS - AUTOMATED METHOD 01/13/2025 7:13 AM [facility] RBC, Urine 0.2 0 - 4 /HPF LAB URINALYSIS - AUTOMATED METHOD 01/13/2025 7:13 AM [facility] WBC, Urine 4.1(H) 0 - 4 /HPF LAB URINALYSIS - AUTOMATED METHOD 01/13/2025 7:13 AM [facility] Squamous Epithelial, Urine 71(H) 0 - 60 /LPF LAB URINALYSIS - AUTOMATED METHOD 01/13/2025 7:13 AM [facility] Bacteria, Urine Few(A) Negative /HPF LAB URINALYSIS - AUTOMATED METHOD 01/13/2025 7:13 AM [facility] Hyaline Casts, Urine 4.0(H) 0 - 3 /LPF LAB URINALYSIS - AUTOMATED METHOD 01/13/2025 7:13 AM [facility] Urine Urine specimen obtained by clean catch procedure / Unknown Non-blood Collection / Unknown 01/13/2025 6:13 AM EDT 01/13/2025 6:51 AM EDT Preston Nagy MD LAB URINE ORDERABLES Final R esult Performing Organization Address City/[facility]/ZIP Co de Phone Number [facility] [address] [place] [address], [place] [phone] * Taylor urine culture tube (01/13/2025 6:13 AM EDT) Pathologist [facility] Extra Tube Hold for add-ons. 01/13/2025 8:02 AM EDT [facility] Comment:Auto resulted. Urine Urine specimen obtained by clean catch procedure / Unknown Non-blood Collection / Unknown 01/13/2025 6:13 AM EDT 01/13/2025 6:51 AM EDT Preston Nagy MD LAB URINE ORDERABLES Final R esult Performing Organization Address [facility]/ZIP Co de Phone Number [facility] [address] [place] [address], [place] [phone] * Chlamydia trachomatis and Neisseria gonorrhoeae molecular study (01/13/2025 6:13 AM EDT) [facility] Neisseria gonorrhoeae PCR Negative Negative LAB MOLECULAR DIAGNOSTICS METHOD 01/13/2025 10:32 AM EDT [facility] Chlamydia trachomatis PCR Negative Negative LAB MOLECULAR DIAGNOSTICS METHOD 01/13/2025 10:32 AM EDT [facility] Urine First stream urine specimen / Unknown Non-blood Collection / Unknown 01/13/2025 6:13 AM EDT 01/13/2025 6:51 AM EDT Sofya HOLLEY LAB MICROBIOLOGY - GENER AL ORDERABLES Final Result Performing Organization Address City/[facility]/ZIP Co de Phone Number [facility] [address] [place] [address], [place] [phone] * Culture urine (01/13/2025 6:13 AM EDT) Culture, Urine No growth 01/14/2025 7:41 AM EDT [facility] Urine Urine specimen obtained by clean catch procedure / Unknown Non-blood Collection / Unknown 01/13/2025 6:13 AM EDT 01/13/2025 7:13 AM EDT us Preston Nagy MD LAB MICROBIOLOGY - GENERAL O RDERABLES Final Result [facility] [address] [place] [address], [place] [phone] * US Scrotum and Contents (01/13/2025 4:38 [...] Mcclendon MD on 01/13/2025 07:41:07 Sofya HOLLEY [facility] US PROCEDURES Final Result * (ABNORMAL) Comprehensive metabolic panel (05/22/2024 3:44 AM EST) Sodium 134 133 - 145 mmol/L LAB CHEMISTRY METHOD 05/22/2024 4:36 AM [facility] Potassium 4.3 3.5 - 5.5 mmol/L LAB CHEMISTRY METHOD 05/22/2024 4:36 AM [facility] Chloride 100 96 - 110 mmol/L LAB CHEMISTRY METHOD 05/22/2024 4:36 AM [facility] CO2 29 21 - 32 mmol/L LAB CHEMISTRY METHOD 05/22/2024 4:36 AM [facility] Anion Gap 5 3 - 11 LAB CHEMISTRY METHOD 05/22/2024 4:36 AM [facility] Glucose 98 70 - 100 mg/dL LAB CHEMISTRY METHOD 05/22/2024 4:36 AM [facility] BUN 18 5 - 25 mg/dL LAB CHEMISTRY METHOD 05/22/2024 4:36 AM [facility] Creatinine 1.03 0.70 - 1.30 mg/dL LAB CHEMISTRY METHOD 05/22/2024 4:36 AM [facility] eGFR 89 >=60 mL/min/1. 73m2 LAB CHEMISTRY METHOD 05/22/2024 4:36 AM [facility] Comment:Calculation based on the Chronic Kidney Disease Epidemiology Collaboration (CKD-EPI) equation refit without adjustment for race. BUN/Creatinine Ratio 17.5 LAB CHEMISTRY METHOD 05/22/2024 4:36 AM [facility] Calcium 9.4 8.5 - 10.5 mg/dL LAB CHEMISTRY METHOD 05/22/2024 4:36 AM [facility] AST (SGOT) 26 10 - 42 unit/L LAB CHEMISTRY METHOD 05/22/2024 4:36 AM [facility] ALT (SGPT) 34 10 - 60 unit/L LAB CHEMISTRY METHOD 05/22/2024 4:36 AM [facility] Alkaline Phosphatase 133(H) 42 - 121 unit/L LAB CHEMISTRY METHOD 05/22/2024 4:36 AM [facility] Total Protein 8.3(H) 6.0 - 8.0 g/dL LAB CHEMISTRY METHOD 05/22/2024 4:36 AM [facility] Albumin 3.9 3.2 - 5.0 g/dL LAB CHEMISTRY METHOD 05/22/2024 4:36 AM [facility] Total Bilirubin 0.5 0.0 - 1.4 mg/dL LAB CHEMISTRY METHOD 05/22/2024 4:36 AM [facility] Blood Venous blood specimen / Unknown Venipuncture / Unknown 05/22/2024 3:44 AM EST 05/22/2024 4:12 AM EST us Alec Maloney DO LAB BLOOD ORDERABLES Final Resu lt [facility] [address] [place] [address], from Last 3 Months or Most Recently Relevant to Health Maintenance Insurance [facility] MEDICAID ADVANTAGE Care Teams Leasing Assistant Relationship Specialty Start Date End Date Cris Solis MD [address] [facility] [place] [address] PCP - General Internal Medicine 03/03/21
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
[2025-04-14 21:00] VITALS: BP 133/61; PULSE 75; RESP 16; TEMP 36.7; O2SAT 95
== END 2025-04-14 21:01 | disposition home or self-care (01) ==
PROVIDERS: Physician Assistant; Emergency Provider Emergency Medicine; PCP Nurse Practitioner Family
DX: L03.031 Cellulitis of right toe (principal); L97.511 Non-pressure chronic ulcer of other part of right foot limited to breakdown of skin; E11.9 Type 2 diabetes mellitus without complications; I10 Essential (primary) hypertension; L84 Corns and callosities; F17.210 Nicotine dependence, cigarettes, uncomplicated; Z79.4 Long term (current) use of insulin; Z79.84 Long term (current) use of oral hypoglycemic drugs; Z79.899 Other long term (current) drug therapy
CPT/HCPCS: 36415; 73630; 80048; 80076; 85025; 85652; 86140; 87040; 99283; 99284

== ENCOUNTER → 2025-04-14 11:31 | Outpatient (BNV) | payer OTHER, SELFPAY | PROVIDERS: PCP Nurse Practitioner Family; Visit Provider Radiology Diagnostic Radiology | DX: S91.201A Unspecified open wound of right great toe with damage to nail, initial encounter (principal); E11.621 Type 2 diabetes mellitus with foot ulcer; M19.071 Primary osteoarthritis, right ankle and foot; M79.89 Other specified soft tissue disorders | CPT/HCPCS: 73630 ==